=== PATIENT | male | born 1960 | race Caucasian/White ===

== ENCOUNTER 2021-03-04 12:31 | Emergency (ER) | payer OTHER, SELFPAY ==
--- NOTE | ~2021-03-04 | XR_ITS ---
EXAMINATION: XR shoulder RT min 2V EXAM DATE: 03/04/2021 12:59 INDICATION: rt anterior proximal humerus/shoulder pain s/p fall . Initial encounter. TECHNIQUE: The following right shoulder projections obtained: frontal projection with internal rotati on, frontal projection with external rotation, Grashey, and scapular Y view (4+ views). Comparison is made to prior examination from 01/30/2013. FINDINGS: No evidence of right shoulder rotator cuff calcific tendinosis. Unremarkable right gleno humeral and acromioclavicular joints. There are no acute fractures or dislocations identified. There is no subcutaneous gas. The soft tissue is unremarkable. There are no radiopaque foreign bodies. Mild right shoulder osteoarthritis. IMPRESSION: 1. XR shoulder RT min 2V exam without acute osseous findings. 2. Mild osteoarthritis. Reviewed, dictated and finalized at location B. LOGIST
[2021-03-04 12:42] VITALS: BP 154/75; PULSE 66; RESP 16; TEMP 36.6; O2SAT 99
--- NOTE | 2021-03-04 13:08 | ED.UPPEXIN ---
HPI - Extremity Injury (Upper) General Chief Complaint: Extremity Injury, Upper Stated Complaint: right shoulder pain Time Seen by Provider: 03/04/21 13:08 Source: patient Mode of arrival: ambulatory Limitations: no limitations History of Present Illness HPI narrative: Moses Santillan is a 60 yo male with a PMH of high cholesterol and inability to move his arm over his head when he fell down the stairs last night. He fell on his right side but is unable to laterally move arm above 45 degrees he is able to do a little bit better doing posteriorly and about 30 degrees anteriorly Patient has had problems with left shoulder in the past and he thinks he may have tried this episode from falling yesterday on stairs Related Data Allergies Allergy/AdvReac Type Severity Reaction Status Date / Time No Known Allergies Allergy Verified 10/14/20 09:27 Review of Systems Review of Systems: CONSTITUTIONAL: Denies fever, chills, sweats. EYES: Denies visual changes, redness, discharge. ENT: Denies rhinorrhea, congestion, sore throat, otalgia. CARDIOVASCULAR: Denies chest pain, palpitations, edema. RESPIRATORY: Denies dyspnea, wheezing, cough GASTROINTESTINAL: Denies abdominal pain, nausea, vomiting, diarrhea. GENITOURINARY: Denies dysuria, hematuria, abnormal discharge SKIN: Denies rash or itching. NEUROLOGIC: Denies numbness, or focal weakness. PSYCHIATRIC: Denies anxiety or depression. Right shoulder pain PMFSH Past Medical History Medical History High cholesterol Social History Social History Smoking status: Former smoker Alcohol intake: current Drinks per week: 3 Substance use: never Substance use type: does not use Gender identity (if verbalized by the patient): Male Comments At time of signature, I agree with nursing past medical, surgical, social and family history. There is no relevant family history pertinent to the presenting complaint. Exam Narrative: GENERAL: This is a well-nourished, well-developed patient, in mild distress. HEAD: normocephalic, atraumatic. EYES: Sclera clear/white. Vision is grossly intact. EARS: External ears normal, . Hearing grossly intact. NOSE: External nose normal without nasal discharge, nares without redness, no rhinorrhea. THROAT: Mucous membranes moist, NECK: Neck supple, non-tender CARDIOVASCULAR: Regular rate and rhythm without murmurs, gallops, or rubs. RESPIRATORY: Clear to auscultation. Breath sounds equal bilaterally. No wheezes, rales, or rhonchi. GASTROINTESTINAL: Abdomen soft, SKIN: warm, intact with no suspicious lesions or rash, good texture and turgor. NEURO: awake, alert, and oriented to person, place and time. There were no obvious focal neurologic abnormalities. Steady gait EXTREMITIES: Normal range of motion. BACK: Nontender without deformity Course Course Emergency Course: Patient fell on stairs last night and hurt his right shoulder X-ray shows no fracture there is no opaque foreign bodies mild osteoarthritis soft tissue looks unremarkable no obvious right rotator cuff tendinosis Patient referred to orthopedist with Dr. Goldsmith for rotator cuff evaluation refuased sling, gave directions on [place] and baclofen Level of Care: Express Care Visit Vital Signs Vital signs: Vital Signs Temperature 97.8 F 03/04/21 12:42 Pulse Rate 66 03/04/21 12:42 Respiratory Rate 16 03/04/21 12:42 Blood Pressure 154/75 H 03/04/21 12:42 Pulse Oximetry 99 03/04/21 12:42 Temperature 97.8 F 03/04/21 12:42 Pulse Rate 66 03/04/21 12:42 Respiratory Rate 16 03/04/21 12:42 Blood Pressure 154/75 H 03/04/21 12:42 Pulse Oximetry 99 03/04/21 12:42 MDM - Extremity Injury (Upper) Differential Diagnosis Differential diagnosis: Likely sprain and strain of wrist, fracture of hand, dislocation of shoulder, fracture of humerus, fracture of clavicle a
== END 2021-03-04 13:54 | disposition home or self-care (01) ==
PROVIDERS: Emergency Provider Nurse Practitioner; PCP Family Medicine
DX: M25.511 Pain in right shoulder (principal); E78.00 Pure hypercholesterolemia, unspecified; Z87.891 Personal history of nicotine dependence
CPT/HCPCS: 73030; 99213; G0463